=== PATIENT | male | born 1960 | race Caucasian/White ===

== ENCOUNTER 2022-09-04 19:46 | Emergency (ER) | payer OTHER ==
[~2022-09-04] VITALS: Ht 177.8 cm; Wt 79.4 kg
[2022-09-04 20:02] VITALS: BP 137/89; PULSE 101; RESP 20; TEMP 98; O2SAT 96
[2022-09-04 20:51] LABS: BASOPHILS # (AUTO) 0.1 K/uL (0.00-0.22); EOSINOPHILS # (AUTO) 0.1 K/uL (0-0.4); EOSINOPHILS % (AUTO) 1.8 % (0.0-4.0); HEMOGLOBIN 13.7 g/dL (12.0-18.0); LYMPHOCYTES # (AUTO) 2.1 K/uL (2.0-11.5); LYMPHOCYTES % (AUTO) 31.4 % (20.5-51.1); MEAN CORPUSCULAR HEMOGLOBIN 27 pg (27-31); MEAN CORPUSCULAR HGB CONC 33 g/dL (33-37); MEAN CORPUSCULAR VOLUME 82.8 fL (80-94); MONOCYTES # (AUTO) 0.8 K/uL (0.8-1.0); MONOCYTES % (AUTO) 11.1 % (1.7-9.3); NEUTROPHILS # (AUTO) 3.7 K/uL (1.8-7.7); NEUTROPHILS % (AUTO) 54.7 % (42.2-75.2); PLATELET COUNT (AUTO) 302 K/uL (140-450); RED BLOOD CELL COUNT(AUTO) 5.07 MIL/uL (4.20-6.10); RED CELL DISTRIBUTION WIDTH 14.6 % (11.6-13.7); WHITE BLOOD COUNT (AUTO) 6.8 K/uL (4.8-10.8)
[2022-09-04 21:03] LABS: ALBUMIN 3.6 g/dL (3.4-5.0); ANION GAP 11.3 (8-16); CARBON DIOXIDE 29.8 mmol/L (21-32); CREATININE 1.2 mg/dL (0.6-1.3); POTASSIUM 4.1 mmol/L (3.5-5.1); TOTAL BILIRUBIN 0.2 mg/dL (0.0-1.0)
[2022-09-04] MEDS ORDERED: cephALEXin 500 MG CAP PO ONE (21:25)
[2022-09-04] MEDS ORDERED: FUROSEMIDE 40 MG TAB PO ONE (21:25)
--- NOTE | 2022-09-04 21:29 | NUR ---
PT AMBULATED TO [facility]
--- NOTE | 2022-09-04 21:37 | NUR ---
TRIED TO SCANNED [place] , NOT WORKING, ADMINESTERED ORDERED MEDS, TOLERATED.
--- NOTE | 2022-09-04 22:00 | NUR ---
URINE WALKED TO LAB
[2022-09-04 22:22] LABS: APPEARANCE,URINE CLEAR (CLEAR); BILIRUBIN,URINE NEGATIVE (NEGATIVE); BLOOD, URINE NEGATIVE (NEGATIVE); COLOR,URINE YELLOW (YELLOW); LEUKOCYTE ESTERASE ,URINE NEGATIVE (NEGATIVE); NITRITE, URINE NEGATIVE (NEGATIVE); UGLUCOSE NEGATIVE (NEGATIVE)
[2022-09-04] MEDS ORDERED: FURO-572 PO (22:25)
[2022-09-04] MEDS ORDERED: CEPH-588 PO (22:25)
[2022-09-04 22:40] VITALS: BP 137/89; PULSE 101; RESP 20; TEMP 98; O2SAT 96
--- NOTE | 2022-09-04 23:03 | NUR ---
Patient discharged with v/s stable. Written and verbal after care instructions given and explained. New rx keflex and lasix. Patient verbalized understanding. Ambulatory with steady gait. All questions addressed prior to discharge. Advised to follow up with PMD.
== END 2022-09-04 23:03 | disposition home or self-care (01) ==
LOC: MED 19:46
DX: R60.9 Edema, unspecified (principal); L03.116 Cellulitis of left lower limb; I10 Essential (primary) hypertension; Z79.899 Other long term (current) drug therapy
CPT/HCPCS: 36415; 80053; 81003; 83880; 85025; 93970; 99284

== ENCOUNTER 2022-12-30 17:58 | Emergency (ER) | payer OTHER ==
[~2022-12-30] VITALS: Ht 177.8 cm; Wt 77.1 kg
[~2022-12-30 17:58] MED LIST: CEPH-588 PO; FURO-572 PO
[2022-12-30 18:41] VITALS: BP 156/89; PULSE 105; RESP 18; TEMP 96.2; O2SAT 100
[2022-12-30] MEDS ORDERED: KETOROLAC 30 MG/ML VIAL IM ONE (22:20)
[2022-12-30] MEDS ORDERED: NAPR-54 PO (22:39)
[2022-12-30] MEDS ORDERED: ACET-10509 PO (22:39)
== END 2022-12-30 23:10 | disposition home or self-care (01) ==
LOC: MED 17:58
DX: S62.306A Unspecified fracture of fifth metacarpal bone, right hand, initial encounter for closed fracture (principal); S80.02XA Contusion of left knee, initial encounter; I10 Essential (primary) hypertension; Z86.73 Personal history of transient ischemic attack (TIA), and cerebral infarction without residual deficits; Z98.890 Other specified postprocedural states; Z79.899 Other long term (current) drug therapy; Z79.1 Long term (current) use of non-steroidal anti-inflammatories (NSAID); Z79.2 Long term (current) use of antibiotics; W18.39XA Other fall on same level, initial encounter; Y92.89 Other specified places as the place of occurrence of the external cause; Y93.89 Activity, other specified; Y99.8 Other external cause status
CPT/HCPCS: 29125; 73130; 73562; 96372; 99284; J1885

== ENCOUNTER 2023-03-21 11:53 | Emergency (ER) | payer OTHER ==
[~2023-03-21] VITALS: Ht 177.8 cm; Wt 77.1 kg
[~2023-03-21 11:53] MED LIST changes: +ACET-10509 PO; +NAPR-54 PO
[2023-03-21 12:04] VITALS: BP 145/94; PULSE 108; RESP 22; TEMP 98.1; O2SAT 96
[2023-03-21] MEDS ORDERED: LIDOCAINE MPF 1% 10 MG/ML VIAL INJ ONE (12:55)
[2023-03-21] MEDS ORDERED: HYDROcodone/APAP 5/325 MG 1 TAB TAB PO ONE (13:05)
[2023-03-21] MEDS ORDERED: ONDANSETRON 4 MG/2 ML VIAL IVP ONE (13:40)
[2023-03-21] MEDS ORDERED: MORPHINE SULFATE 4 MG/ML SYR IVP ONE (13:40)
[2023-03-21 14:12] LABS: BASOPHILS # (AUTO) 0.1 K/uL (0.00-0.22); BASOPHILS % (AUTO) 0.7 % (0.0-2.0); EOSINOPHILS # (AUTO) 0.1 K/uL (0-0.4); EOSINOPHILS % (AUTO) 0.7 % (0.0-4.0); HEMATOCRIT 37.8 % (36-52); HEMOGLOBIN 12.9 g/dL (12.0-18.0); LYMPHOCYTES # (AUTO) 1.7 K/uL (2.0-11.5); LYMPHOCYTES % (AUTO) 15.2 % (20.5-51.1); MEAN CORPUSCULAR HEMOGLOBIN 28 pg (27-31); MEAN CORPUSCULAR HGB CONC 34 g/dL (33-37); MEAN CORPUSCULAR VOLUME 82.2 fL (80-94); MONOCYTES # (AUTO) 0.6 K/uL (0.8-1.0); MONOCYTES % (AUTO) 5.6 % (1.7-9.3); NEUTROPHILS # (AUTO) 8.5 K/uL (1.8-7.7); NEUTROPHILS % (AUTO) 77.8 % (42.2-75.2); PLATELET COUNT (AUTO) 246 K/uL (140-450); RED CELL DISTRIBUTION WIDTH 13.9 % (11.6-13.7)
[2023-03-21 14:24] LABS: INR 0.99 (0.8-1.2); PROTHROMBIN TIME 10.4 secs (10.8-13.4)
[2023-03-21] MEDS ORDERED: BACI-418 TP (15:29)
[2023-03-21 16:31] VITALS: BP 134/92; PULSE 100; RESP 22; TEMP 98.1; O2SAT 96
== END 2023-03-21 16:33 | disposition home or self-care (01) ==
LOC: MED 11:53
DX: S91.312A Laceration without foreign body, left foot, initial encounter (principal); I10 Essential (primary) hypertension; Z86.73 Personal history of transient ischemic attack (TIA), and cerebral infarction without residual deficits; Z79.899 Other long term (current) drug therapy; X58.XXXA Exposure to other specified factors, initial encounter; Y93.89 Activity, other specified; Y92.89 Other specified places as the place of occurrence of the external cause; Y99.8 Other external cause status
CPT/HCPCS: 12001; 36415; 73620; 85025; 85610; 85730; 86886; 86900; 86901; 90715; 96374; 96375; 99284; J2001; J2270; J2405

== ENCOUNTER 2023-04-11 13:08 | Emergency (ER) | payer OTHER ==
[~2023-04-11] VITALS: Ht 177.8 cm; Wt 77.1 kg
[~2023-04-11 13:08] MED LIST changes: +BACI-418 TP
[2023-04-11 13:20] VITALS: BP 151/92; PULSE 97; RESP 18; TEMP 97.8; O2SAT 97
[2023-04-11] MEDS ORDERED: BACI-418 TP (13:40)
[2023-04-11] MEDS ORDERED: BACITRACIN OINT 500 UNITS/GM PKT TP ONE (13:55)
[2023-04-11] MEDS: BACITRACIN OINT 500 UNITS/GM PKT TP ONE ×2 (13:59)
== END 2023-04-11 14:03 | disposition home or self-care (01) ==
LOC: MED 13:08
DX: S91.312D Laceration without foreign body, left foot, subsequent encounter (principal); I10 Essential (primary) hypertension; Z48.02 Encounter for removal of sutures; Z48.00 Encounter for change or removal of nonsurgical wound dressing; Z86.73 Personal history of transient ischemic attack (TIA), and cerebral infarction without residual deficits; Z79.899 Other long term (current) drug therapy; X58.XXXD Exposure to other specified factors, subsequent encounter
CPT/HCPCS: 99282